=== PATIENT | male | born 1965 | race American Indian/Alaskan Native ===

== ENCOUNTER 2021-08-09 11:33 | Inpatient (IN) | payer SELFPAY ==
--- NOTE | 2021-08-09 16:24 | Emergency Department Report ---
ED General Adult HPI - General Chief complaint: Skin/Abscess/Foreign Body Stated complaint: LUMP BETWEEN ANAL SCRTUM PUI?: No Source: patient Mode of arrival: Ambulatory Limitations: No Limitations - History of Present Illness Initial comments: 55-year-old male with no significant past medical history presents emergency department complaining pain to the perineal region for the last 7 days and reports progressively worsening pain and swelling since the onset Quality: dull Consistency: constant Worsens with: movement Associated Symptoms: denies: diaphoresis, malaise, shortness of breath, syncope Treatments Prior to Arrival: none - Related Data Allergies Allergy/AdvReac Type Severity Reaction Status Date / Time No Known Allergies Allergy Unverified 08/09/21 12:25 ED Review of Systems ROS: Stated complaint: LUMP BETWEEN ANAL SCRTUM Other details as noted in HPI Comment: All other systems reviewed and negative ED Past Medical Hx - Past Medical History Previous Medical History?: No - Surgical History Past Surgical History?: No ED Physical Exam - General Limitations: No Limitations General appearance: alert, in no apparent distress - Head Head exam: Present: atraumatic, normocephalic - Eye Eye exam: Present: normal appearance, PERRL, EOMI Pupils: Present: normal accommodation - ENT ENT exam: Present: normal exam, normal orophraynx, mucous membranes moist, TM's normal bilaterally - Neck Neck exam: Present: normal inspection, full ROM. Absent: thyromegaly - Respiratory Respiratory exam: Present: normal lung sounds bilaterally. Absent: respiratory distress - Cardiovascular Cardiovascular Exam: Present: regular rate, normal rhythm. Absent: systolic murmur, diastolic murmur, rubs, gallop - GI/Abdominal GI/Abdominal exam: Present: soft, normal bowel sounds - Rectal Rectal exam: Present: deferred - Extremities Exam Extremities exam: Present: normal inspection - Back Exam Back exam: Present: normal inspection - Neurological Exam Neurological exam: Present: alert, oriented X3 - Psychiatric Psychiatric exam: Present: normal affect, normal mood - Skin Skin exam: Present: warm, dry, intact, normal color. Absent: rash ED Course Vital Signs 08/09/21 12:27 Temperature 99.0 F Pulse Rate 61 Respiratory 18 Rate Blood Pressure 127/77 O2 Sat by Pulse 100 Oximetry ED Medical Decision Making - Lab Data Result diagrams: 08/09/21 16:31 08/09/21 16:31 - Radiology Data Radiology results: report reviewed [facility] [address] [place] [address] Cat Scan Report Signed Patient: ABDIEL SIMPSON MR#: [id number] : 1965 Acct:[id number] Age/Sex: 55 / M ADM Date: 08/09/21 Loc: ED Attending Dr: Ordering Physician: BELLA BACA Date of Service: 08/09/21 Procedure(s): CT abdomen pelvis w con Accession Number(s): [id number] cc: BELLA BAAC CT ABDOMEN AND PELVIS WITH CONTRAST HISTORY: Perineal mass. COMPARISON: None. TECHNIQUE: CT images of the abdomen and pelvis were obtained following administration of intravenous contrast. All CT scans at this location are performed using CT dose reduction for ALARA by means of automated exposure control. CONTRAST: 100 ml of intravenous contrast administered. FINDINGS: Lungs/bones: Lung bases are clear Abdomen/pelvis: The liver, spleen, adrenal glands, pancreas, gallbladder and upper GI tract appear normal. Portal vein is patent. Bilateral kidneys appear normal without hydronephrosis. Bowel loops appear normal. No dominant adenopathy is seen. No free fluid in the abdomen or pelvis. Prostate appears normal. Degenerative change seen with mild scoliosis. There is a cystic lesion/fluid collection in the perineum slightly asymmetric to the left. There is surrounding thick ding with inflammation. On axial images this area measures 4.4 x 3.9 cm on coronal images 5.5 x 3.7 cm. This is in close proximity to the rectum. IMPRESSION: 1. Large cystic lesion/fluid collection within the peritoneum measuring 4.4 x 3.9 cm on axial images. There is thickened ding and surrounding inflammation. Findings are nonspecific however could represent abscess. This appears adjacent to the rectum. Further workup and evaluation recommended. Signer Name: Jai Avila MD Signed: 08/09/2021 6:26 PM Workstation Name: [id number] Transcribed By: CLARK Dictated By: JOSE ENRIQUE AVILA MD Electronically Authenticated By: JOSE ENRIQUE AVILA MD Signed Date/Time: 08/09/211825 DD/ 22 TD/TT: Print - Medical Decision Making 55-year-old male with no significant past medical history presents with rectal pain initially thought was a hemorrhoid treated with suppository CT scan does confirm a fluid collection to the perineal area suggestive of perirectal abscess. Discussed the case with general surgery Dr. Lynne who has plans to evaluate Mr. Stephen in the morning and possible drain the fluid collection Osedo placement n.p.o. at midnight. I discussed the case with the hospitalist Dr. Barajas I will for the case to Dr. Candelaria per his request in the meantime placing hospital orders and starting Mr. Stephne on analgesic medicine in antibiotics Critical care attestation.: If time is entered above; I have spent that time in minutes in the direct care of this critically ill patient, excluding procedure time. ED Disposition Clinical Impression: Perirectal abscess Disposition: ADMITTED INPATIENT Is pt being admited?: Yes Does the pt Need Aspirin: No Condition: Stable
[2021-08-09 17:01] LABS: Basophils # (Auto) 0.1 K/mm3 (0.0-0.1); Basophils % (Auto) 0.8 % (0.0-1.8); Eosinophils # (Auto) 0.1 K/mm3 (0.0-0.4); Eosinophils % (Auto) 0.9 % (0.0-4.3); Hematocrit 42.8 % (35.5-45.6); Hemoglobin 14.4 gm/dl (11.8-15.2); Lymphocytes # (Auto) 2.2 K/mm3 (1.2-5.4); Lymphocytes % (Auto) 18.1 % (13.4-35.0); Mean Corpuscular HGB Conc 34 % (32-34); Mean Corpuscular Volume 95 fl (84-94); Monocytes # (Auto) 1.2 K/mm3 (0.0-0.8); Monocytes % (Auto) 9.4 % (0.0-7.3); Platelet Count 268 K/mm3 (140-440); Red Blood Count 4.51 M/mm3 (3.65-5.03); Red Cell Distribution Width 13.3 % (13.2-15.2)
[2021-08-09 17:24] LABS: BUN/Creatinine Ratio 14; Blood Urea Nitrogen 11 mg/dL (9-20); Hemolysis Index 8
--- NOTE | 2021-08-09 18:30 | Cat Scan Report ---
CT ABDOMEN AND PELVIS WITH CONTRAST HISTORY: Perineal mass. COMPARISON: None. TECHNIQUE: CT images of the abdomen and pelvis were obtained following administration of intravenous contrast. All CT scans at this location are performed using CT dose reduction for ALARA by means of automated exposure control. CONTRAST: 100 ml of intravenous contrast administered. FINDINGS: Lungs/bones: Lung bases are clear Abdomen/pelvis: The liver, spleen, adrenal glands, pancreas, gallbladder and upper GI tract appear n ormal. Portal vein is patent. Bilateral kidneys appear normal without hydronephrosis. Bowel loops ilda ear normal. No dominant adenopathy is seen. No free fluid in the abdomen or pelvis. Prostate appears normal. Degenerative change seen with mild scoliosis. There is a cystic lesion/fluid collection in the perineum slightly asymmetric to the left. There is s urrounding thick ding with inflammation. On axial images this area measures 4.4 x 3.9 cm on coronal images 5.5 x 3.7 cm. This is in close proximity to the rectum. IMPRESSION: 1. Large cystic lesion/fluid collection within the peritoneum measuring 4.4 x 3.9 cm on axial images. There is thickened ding and surrounding inflammation. Findings are nonspecific however could repres ent abscess. This appears adjacent to the rectum. Further workup and evaluation recommended. Signer Name: Jai Avila MD Signed: 08/09/2021 6:26 PM Workstation Name: [id number]
[2021-08-09] MEDS ORDERED: PIPERACIL/TAZOBACTA 4.5/NS 100 4.5 GM/100 ML VIAL IV ONE (19:44)
[2021-08-09] MEDS ORDERED: MORPHINE 4 MG/1 ML INJ IV STA (19:50)
[2021-08-09] MEDS ORDERED: ONDANSETRON 4 MG/2 ML INJ IV STA (19:50)
[2021-08-09] MEDS ORDERED: SODIUM CHLORIDE 0.9% 1000 ML 1,000 ML IV SCH (20:00)
[2021-08-09] MEDS ORDERED: ACETAMINOPHEN 325 MG TAB PO PRN (20:46)
[2021-08-09] MEDS ORDERED: ONDANSETRON 4 MG/2 ML INJ IV PRN (20:46)
[2021-08-09] MEDS ORDERED: HYDROmorphone 1 MG/1 ML INJ IV PRN (20:46)
[2021-08-09] MEDS ORDERED: MORPHINE 2 MG/1 ML INJ IV PRN (20:46)
[2021-08-09] MEDS ORDERED: VANCOMYCIN PHARMACY TO DOSE IV SCH (23:45)
--- NOTE | 2021-08-09 23:48 | History and Physical Report ---
History of Present Illness Date of examination: 08/09/21 Date of admission: 08/09/21 20:46 Chief complaint: Perianal pain for 3 days History of present illness: 55-year-old with no significant past medical history presents to the emergency department complaining of perineal region pain for the last 7 days and reports progressively worsening pain and swelling. Pain is about 8 on a scale of 1-10. No fever or chills. Sexual orientation not known. - Past Medical History --Previous Medical History?: No - Surgical History --Past Surgical History?: No -social history -- No smoking or alcohol - Family history --Htn Review of Systems ROS: Stated complaint: LUMP BETWEEN ANAL SCRTUM Other details as noted in HPI Comment: All other systems reviewed and negative Medications and Allergies Allergies Allergy/AdvReac Type Severity Reaction Status Date / Time No Known Allergies Allergy Verified 08/09/21 19:50 Home Medications Medication Instructions Recorded Confirmed Last Taken Type No Known Home Medications [No 08/10/21 08/10/21 Unknown History Reported Home Medications] Active Meds: Active Medications Acetaminophen (Acetaminophen 325 Mg Tab) 650 mg PO Q4H PRN PRN Reason: Pain MILD(1-3)/Fever >100.5/SEO Hydromorphone HCl (Hydromorphone 1 Mg/1 Ml Inj) 0.5 mg IV Q3H PRN PRN Reason: Pain , Severe (7-10) Sodium Chloride (Nacl 0.9% 1000 Ml) 1,000 mls @ 100 mls/hr IV DIRECT HUMZA Morphine Sulfate (Morphine 2 Mg/1 Ml Inj) 2 mg IV Q4H PRN PRN Reason: Pain, Moderate (4-6) Ondansetron HCl (Ondansetron 4 Mg/2 Ml Inj) 4 mg IV Q8H PRN PRN Reason: Nausea And Vomiting Sodium Chloride (Sodium Chloride 0.9% 10 Ml Flush Syringe) 10 ml IV PRN PRN PRN Reason: LINE FLUSH Exam - Constitutional Vitals: Temp Pulse Resp BP Pulse Ox 98.7 F 60 14 117/74 98 08/09/21 19:59 08/09/21 19:59 08/09/21 20:00 08/09/21 19:59 08/09/21 19:59 General appearance: Present: no acute distress, well-nourished - EENT Eyes: Present: PERRL ENT: hearing intact, clear oral mucosa - Neck Neck: Present: supple, normal ROM - Respiratory Respiratory effort: normal Respiratory: bilateral: CTA - Cardiovascular Heart rate: 78 Rhythm: regular Heart Sounds: Present: S1 & S2. Absent: rub, click - Extremities Extremities: no ischemia, pulses intact, pulses symmetrical, No edema Extremity abnormal: other Peripheral Pulses: within normal limits - Abdominal General gastrointestinal: Present: soft, non-tender, non-distended, normal bowel sounds Male genitourinary: Present: normal - Rectal Rectal Exam: tenderness, other (Perirectal abscess) - Integumentary Integumentary: Present: clear, warm, dry - Musculoskeletal Musculoskeletal: gait normal, strength equal bilaterally - Psychiatric Psychiatric: appropriate mood/affect, intact judgment & insight - Neurologic Neurologic: CNII-XII intact, moves all extremities Results - Labs CBC & Chem 7: 08/09/21 16:31 08/09/21 16:31 Labs: Laboratory Last Values WBC 12.3 K/mm3 (4.5-11.0) H 08/09/21 16:31 RBC 4.51 M/mm3 (3.65-5.03) 08/09/21 16:31 Hgb 14.4 gm/dl (11.8-15.2) 08/09/21 16:31 Hct 42.8 % (35.5-45.6) 08/09/21 16:31 MCV 95 fl (84-94) H 08/09/21 16:31 MCH 32 pg (28-32) 08/09/21 16:31 MCHC 34 % (32-34) 08/09/21 16:31 RDW 13.3 % (13.2-15.2) 08/09/21 16:31 Plt Count 268 K/mm3 (140-440) 08/09/21 16:31 Lymph % (Auto) 18.1 % (13.4-35.0) 08/09/21 16:31 Calloway % (Auto) 9.4 % (0.0-7.3) H 08/09/21 16:31 Eos % (Auto) 0.9 % (0.0-4.3) 08/09/21 16:31 Baso % (Auto) 0.8 % (0.0-1.8) 08/09/21 16:31 Lymph # (Auto) 2.2 K/mm3 (1.2-5.4) 08/09/21 16:31 Calloway # (Auto) 1.2 K/mm3 (0.0-0.8) H 08/09/21 16:31 Eos # (Auto) 0.1 K/mm3 (0.0-0.4) 08/09/21 16:31 Baso # (Auto) 0.1 K/mm3 (0.0-0.1) 08/09/21 16:31 Seg Neutrophils % 70.8 % (40.0-70.0) H 08/09/21 16:31 Seg Neutrophils # 8.7 K/mm3 (1.8-7.7) H 08/09/21 16:31 Sodium 140 mmol/L (137-145) 08/09/21 16:31 Potassium 4.6 mmol/L (3.6-5.0) 08/09/21 16:31 Chloride 99.5 mmol/L (98-107) 08/09/21 16:31 Carbon Dioxide 27 mmol/L (22-30) 08/09/21 16:31 Anion Gap 18 mmol/L 08/09/21 16:31 BUN 11 mg/dL (9-20) 08/09/21 16:31 Creatinine 0.8 mg/dL (0.8-1.3) 08/09/21 16:31 Estimated GFR > 60 ml/min 08/09/21 16:31 BUN/Creatinine Ratio 14 % 08/09/21 16:31 Glucose 100 mg/dL (75-100) 08/09/21 16:31 Calcium 10.0 mg/dL (8.4-10.2) 08/09/21 16:31 - Imaging and Cardiology CT scan - abdomen: report reviewed Imaging and Cardiology: CT of the abdomen and pelvis Large cystic lesion/fluid collection within the perineum measuring 4.4X 3.9 cm on axial images. There is thickened ding and surrounding inflammation. Findings are nonspecific however could represent an abscess. This appears adjacent to the rectum further work-up and evaluation recommended. Assessment and Plan Advance Directives: Yes (Full code) Plan of care discussed with patient/family: Yes - Patient Problems (1) Perirectal abscess Current Visit: Yes Status: Acute Plan to address problem: IV Unasyn and IV vancomycin for now Surgical consult for possible I&D (2) DVT prophylaxis Current Visit: Yes Status: Acute Plan to address problem: On anticoagulation GI prophylaxis (3) Advance care planning Current Visit: Yes Status: Acute Plan to address problem: Disease education conducted, care plan discussed, diagnosis discussed, prognosis discussed. Patient is full code. Patient acknowledges understanding and agreement with care plan. +30 minutes.
[2021-08-09] MEDS: SODIUM CHLORIDE 0.9% 1000 ML 1,000 ML IV SCH (23:49)
[2021-08-10] MEDS ORDERED: VANCOMYCIN 2,000 MG in SODIUM CHLORIDE 0.9% 500 ML 500 ML IV ONE
[2021-08-10] MEDS: AMPICILLIN/SULBACTA 3GM/100ML 3 GM/100 ML BAG IV SCH ×5 (01:05→23:34)
[2021-08-10] MEDS: VANCOMYCIN 1,500 MG in SODIUM CHLORIDE 0.9% 500 ML 500 ML IV SCH (17:43)
--- NOTE | 2021-08-10 19:06 | Consultation ---
History of Present Illness Consult date: 08/10/21 - History of present illness History of present illness: 55 yo male with a one week h/o progressively severe noe-anal pain. No h/o DM or similar problems. The point of tenderness began draining earlier today and now the area is much less tender. Medications and Allergies Allergies Allergy/AdvReac Type Severity Reaction Status Date / Time No Known Allergies Allergy Verified 08/09/21 19:50 Home Medications Medication Instructions Recorded Confirmed Last Taken Type RX: No Known Home Medications [No 08/10/21 08/10/21 Unknown History Reported Home Medications] Active Meds: Active Medications Acetaminophen (Acetaminophen 325 Mg Tab) 650 mg PO Q4H PRN PRN Reason: Pain MILD(1-3)/Fever >100.5/SEO Hydromorphone HCl (Hydromorphone 1 Mg/1 Ml Inj) 0.5 mg IV Q3H PRN PRN Reason: Pain , Severe (7-10) Last Admin: 08/09/21 23:49 Dose: 0.5 mg Sodium Chloride (Nacl 0.9% 1000 Ml) 1,000 mls @ 100 mls/hr IV DIRECT HUMZA Last Admin: 08/09/21 23:49 Dose: 100 mls/hr Ampicillin Sodium/Sulbactam Sodium (Unasyn/Ns 3 Gm/100 Ml) 3 gm in 100 mls @ 100 mls/hr IV Q6HR HUMZA; Protocol Last Admin: 08/10/21 07:12 Dose: 100 mls/hr Vancomycin HCl 1,500 mg/ (Sodium Chloride) 530 mls @ 333.333 mls/hr IV Q12H HUMZA Last Admin: 08/10/21 17:43 Dose: 333.333 mls/hr Morphine Sulfate (Morphine 2 Mg/1 Ml Inj) 2 mg IV Q4H PRN PRN Reason: Pain, Moderate (4-6) Ondansetron HCl (Ondansetron 4 Mg/2 Ml Inj) 4 mg IV Q8H PRN PRN Reason: Nausea And Vomiting Sodium Chloride (Sodium Chloride 0.9% 10 Ml Flush Syringe) 10 ml IV PRN PRN PRN Reason: LINE FLUSH Review of Systems All systems: negative (none) Exam Vital Signs Temp Pulse Resp BP Pulse Ox 99.0 F 61 18 127/77 100 08/09/21 12:27 08/09/21 12:27 08/09/21 12:27 08/09/21 12:27 08/09/21 12:27 - General physical appearance Positive: well developed, well nourished, no distress - Eyes Positive: PERRL, normal occular movement - ENT Positive: normal pinna, normal nares, normal mucosa, no hearing loss, no congestion - Neck Positive: no masses, no bruits, trachea midline, no venous distension - Respiratory Positive: normal expansion, normal respiratory effort, clear to auscultation - Cardiovascular Rhythm: regular Heart Sounds: Present: S1 & S2. Absent: rub, click - Extremities Extremities: no ischemia, pulses symmetrical, No edema - Breasts Breasts: normal, no mass, no skin changes - Abdomen Abdomen: Present: soft, bowel sounds normal. Absent: tender, distended Hernia: none - Genitourinary Male Genitourinary: normal Female Genitourinary: normal - Rectum Rectum: other (There is a 4 mm skin opening anterior to the anus draining a small amount of slightly purulent material. No significant associated induration.) - Integumentary no rash, no growths, no abnormal pigmentation - Neurologic Neurologic: alert and oriented to time, place and person, motor strength and sensation are grossly intact - Musculoskeletal normal gait, normal posture - Psychiatric Psychiatric: appropriate mood/affect, intact judgment & insight Results - Labs 08/09/21 16:31 08/09/21 16:31 - Imaging CT scan - abdomen: report reviewed CT scan - pelvis: report reviewed Assessment and Plan - Patient Problems (1) Perirectal abscess Current Visit: Yes Status: Acute Plan to address problem: 1) Since this has spontaneously drained, an I&D is not necessary. 2) Regular diet 3) CBC in the am 4) Continue broad spectrum IV antibiotics.
--- NOTE | 2021-08-10 22:07 | Progress Note ---
Assessment and Plan - Patient Problems (1) Perirectal abscess Current Visit: Yes Status: Acute Plan to address problem: IV Unasyn and IV vancomycin for now Surgical consult for possible I&D (2) DVT prophylaxis Current Visit: Yes Status: Acute Plan to address problem: On anticoagulation GI prophylaxis (3) Advance care planning Current Visit: Yes Status: Acute Plan to address problem: Disease education conducted, care plan discussed, diagnosis discussed, prognosis discussed. Patient is full code. Patient acknowledges understanding and agreement with care plan. +30 minutes. Subjective Date of service: 08/10/21 Objective - Constitutional Vitals: Vital Signs - 12hr 08/10/21 12:00 O2 Sat by Pulse 98 Oximetry General appearance: Present: no acute distress, well-nourished - EENT Eyes: PERRL, EOM intact ENT: hearing intact, clear oral mucosa Ears: bilateral: normal - Neck Neck: supple, normal ROM - Respiratory Respiratory effort: normal Respiratory: bilateral: CTA - Breasts Breasts: normal - Cardiovascular Rhythm: regular Heart Sounds: Present: S1 & S2. Absent: gallop, rub Extremities: pulses intact, No edema, normal color, Full ROM - Gastrointestinal General gastrointestinal: Present: soft, non-tender, non-distended, normal bowel sounds - Genitourinary Male genitourinary: normal - Integumentary Integumentary: clear, warm, dry - Musculoskeletal Musculoskeletal: 1, strength equal bilaterally - Neurologic Neurologic: moves all extremities - Psychiatric Psychiatric: memory intact, appropriate mood/affect, intact judgment & insight - Labs CBC & Chem 7: 08/09/21 16:31 08/09/21 16:31
[2021-08-10] MEDS: SODIUM CHLORIDE 0.9% 1000 ML 1,000 ML IV SCH (23:40)
--- NOTE | 2021-08-11 00:55 | Discharge Summary ---
Providers - Providers Date of Admission: 08/09/21 20:46 Date of discharge: 08/11/21 Attending physician: FOSTER SAMUELS 08/09/21 21:08 Consult to Physician [CONS] Stat Comment: BELLA Tai spoke with Dr. Lynne @ 194 Consulting Provider: JOHN LYNNE Physician Instructions: Reason For Exam: perirectal abscess Hospitalization Condition: Stable - Discharge Diagnoses (1) Perirectal abscess Status: Acute (2) DVT prophylaxis Status: Acute (3) Advance care planning Status: Acute Exam - Constitutional Vitals: Temp Pulse Resp BP Pulse Ox 99.4 F 63 18 123/65 98 08/10/21 21:31 08/10/21 21:31 08/10/21 21:31 08/10/21 21:31 08/10/21 21:31 Plan Follow up with: AQUILINO OSORIO [Other] - 7 Days
[2021-08-11] MEDS: AMPICILLIN/SULBACTA 3GM/100ML 3 GM/100 ML BAG IV SCH (05:20)
[2021-08-11 05:53] VITALS: BP 122/71
[2021-08-11] MEDS: VANCOMYCIN 1,500 MG in SODIUM CHLORIDE 0.9% 500 ML 500 ML IV SCH (06:30)
[2021-08-11 09:14] LABS: Basophils # (Auto) 0.1 K/mm3 (0.0-0.1); Basophils % (Auto) 0.8 % (0.0-1.8); Eosinophils # (Auto) 0.2 K/mm3 (0.0-0.4); Eosinophils % (Auto) 3.6 % (0.0-4.3); Hematocrit 35.4 % (35.5-45.6); Hemoglobin 11.8 gm/dl (11.8-15.2); Lymphocytes % (Auto) 32.2 % (13.4-35.0); Mean Corpuscular HGB Conc 33 % (32-34); Mean Corpuscular Volume 95 fl (84-94); Monocytes # (Auto) 0.7 K/mm3 (0.0-0.8); Monocytes % (Auto) 11.8 % (0.0-7.3); Platelet Count 237 K/mm3 (140-440); Red Blood Count 3.74 M/mm3 (3.65-5.03); Red Cell Distribution Width 13.1 % (13.2-15.2)
== END 2021-08-11 10:30 | disposition home or self-care (01) | DRG 395 ==
LOC: ED 11:33 → 3A 20:46
PROVIDERS: ADMIT Internal Medicine; ATTEND Internal Medicine
DX: K61.1 Rectal abscess (principal)
CPT/HCPCS: 36415; 74177; 80048; 85025; G0378; Q0162; J0295; J1170; J2270; J2405; J2543; J3370; J7030; J7040; Q9967